=== PATIENT | female | born 2000 | race Caucasian/White ===

== ENCOUNTER 2020-04-25 14:32 | Outpatient (CLI) | payer OTHER, SELFPAY ==
--- NOTE | ~2020-04-25 | XR_ITS ---
XR foot LT min 3V DATE: 04/25/2020 14:59 INDICATION: Left foot pain, base of fifth metatarsal TECHNIQUE: 4 views COMPARISON: None FINDINGS: No fracture, dislocation, periosteal reaction or bone destruction. IMPRESSION: Negative Reviewed, dictated and finalized at location A. IMPRESSION: Negative
[2020-04-25 15:46] LABS: Cholesterol 136 mg/dL (0-200); HDL Direct 45 mg/dL (40-60); LDL Cholesterol Calculated 84 mg/dL (<130); Thyroid Stimulating Hormone 1.08 uIU/mL (0.52-4.13); Triglycerides 35 mg/dL (0-150)
[2020-04-28 06:44] LABS: Prolactin 11.2 ng/mL (***)
[2020-04-29 09:24] LABS: DHEA-Sulfate 379 mcg/dL (51-321)
[2020-04-29 14:33] LABS: Testosterone Free 5.1 pg/mL (0.1-6.4); Testosterone Total 33 ng/dL (2-45)
== END 2020-04-25 14:33 | disposition home or self-care (01) ==
DX: M79.672 Pain in left foot (principal); N94.6 Dysmenorrhea, unspecified
CPT/HCPCS: 36415; 73630; 80061; 82627; 83001; 83498; 84146; 84402; 84403; 84443

== ENCOUNTER 2020-05-06 10:19 | Outpatient (CLI) | payer OTHER, SELFPAY ==
--- NOTE | ~2020-05-06 | US_ITS ---
EXAMINATION: US pelvic complete w TV DATE: 05/06/2020 11:57 INDICATION: Dysmenorrhea. TECHNIQUE: Multiple transabdominal and transvaginal sonographic images of the pelvis were obtained. COMPARISON: None. FINDINGS: TRANSABDOMINAL ULTRASOUND: The uterus measures 5.8 x 2.9 x 4.3 cm. There is no free fluid in the pelvis. TRANSVAGINAL ULTRASOUND: The endometrial complex measures 5 mm in thickness. The right ovary measures 2.7 x 3.4 x 2.3 cm. The left ovary measures 4.0 x 1.8 x 3.1 cm. There is normal vascular flow in the ovaries. IMPRESSION: 1. Normal pelvis. Reviewed, dictated and finalized at location A. IMPRESSION: 1. Normal pelvis.
== END 2020-05-06 10:20 | disposition home or self-care (01) ==
PROVIDERS: PCP Family Medicine
DX: N94.6 Dysmenorrhea, unspecified (principal)
CPT/HCPCS: 76830; 76856

== ENCOUNTER 2020-08-03 16:55 | Emergency (ER) | payer OTHER, SELFPAY ==
[2020-08-03 17:15] VITALS: BP 126/75; PULSE 80; RESP 18; TEMP 37.2; O2SAT 98
--- NOTE | 2020-08-03 17:15 | ECG_ITS ---
Measurements Intervals [place] Rate: 78 P: 46 AL: 136 QRS: 60 QRSD: 91 T: 10 QT: 375 QTc: 427 Interpretive Statements SINUS RHYTHM MINIMAL Q WAVES- INFERIOR LEADS BASELINE ARTIFACT- II, III, AVF BORDERLINE ECG Electronically Signed On 08-04-2020 7:08:45 CDT by Pawan Simpson D.O.
[2020-08-03 17:27] LABS: Basophils Absolute Auto 0.03 K/mm3 (0.00-0.10); Basophils Percent Auto 0.4 % (0.0-1.0); Eosinophils Absolute Auto 0.08 K/mm3 (0.02-0.50); Eosinophils Percent Auto 1.2 % (1.0-6.0); Hematocrit 40.6 % (35.0-49.0); Immature Granulocyte Absolute 0.01 K/mm3 (0.00-0.00); Immature Granulocyte Percent A 0.1 % (0.0-0.0); Lymphocytes Absolute Auto 2.21 K/mm3 (1.10-4.50); Mean Corpuscular Hemoglobin 26.5 pg (27.0-31.0); Mean Corpuscular Volume 82.9 fL (78.0-102.0); Mean Platelet Volume 10.2 fl (9.2-11.8); Monocytes Absolute Auto 0.46 K/mm3 (0.10-0.90); Monocytes Percent Auto 6.7 % (2.0-11.0); Neutrophils Absolute Auto 4.1 K/mm3 (1.7-7.2); Neutrophils Percent Auto 59.6 % (50.0-70.0); Platelet Count Result 329 K/mm3 (150-420); Red Cell Distribution Width 14.6 % (11.6-14.4); White Blood Count 6.9 K/mm3 (4.8-10.8)
[2020-08-03 17:31] LABS: Add Urine Microscopic? YES; Appearance Urine Cloudy (Clear); Bilirubin Urine Negative (Negative); Blood Urine Negative (Negative); Color Urine Yellow (Yellow); Glucose Urine UA Negative (Negative); Ketones Urine Negative (Negative); Leukocyte Esterase Ur 3+ LEU/UL (Negative); Nitrate Urine Negative (Negative); Protein Urine Negative (Negative); Urobilinogen Urine 0.2 mg/dL (0.2-1.0)
[2020-08-03 17:36] LABS: Amphetamine Screen Urine Negative (Negative); Barbiturate Screen Urine Negative (Negative); Benzodiazepines Screen Urine Negative (Negative); Cannabinoid Screen Urine Negative (Negative); Cocaine Screen Urine Negative (Negative); Methadone Screen Urine Negative (Negative); Opiate Screen Urine Negative (Negative); Phencyclidine Screen Urine Negative (Negative)
[2020-08-03 17:38] LABS: RBC Urine 0-2 /hpf (0-2); Squamous Epithelial Cell Urine Moderate /hpf (Few)
[2020-08-03 17:39] LABS: Amorphous Sediment Urine Moderate; Bacteria Urine 1+ /hpf
[2020-08-03 17:47] LABS: Alanine Aminotransferase 25 U/L (14-59); Albumin Level 3.9 g/dL (3.4-5.0); Alkaline Phosphatase 61 U/L (46-116); Anion Gap 7 mmol/L (8-16); Aspartate Amino Transferase 18 U/L (15-37); Bilirubin,Total 0.3 mg/dL (0.00-1.00); Blood Urea Nitrogen 11 mg/dL (7-18); Carbon Dioxide 27 mmol/L (21-32); Chloride 105 mmol/L (98-108); Estimated CRCL calculation 113 ml/min; Estimated Glomerular Filt Rate > 60; Glucose 100 mg/dL (70-99); Osmolality Calculated 287 mOsm/kg (285-295); Potassium 3.7 mmol/L (3.5-5.1); Salicylate 0.5 mg/dL (2.8-20.0); Sodium 139 mmol/L (136-145); Total Protein 7.4 g/dL (6.4-8.2)
[2020-08-03 17:49] LABS: Acetaminophen 0 ug/mL (10-30); Ethanol < 3 mg/dL (0-6)
[2020-08-03 17:52] LABS: Pregnancy On Board Control Positive; Urine Pregnancy Test Negative
--- NOTE | 2020-08-03 18:15 | ED.PSYCH ---
HPI - Psych General Chief Complaint: Psychiatric Symptoms Stated Complaint: psych eval Source: patient Mode of arrival: ambulatory Limitations: no limitations History of Present Illness HPI Narrative: Pt presents to ED with hc of suicide attempt 3 days ago. SHe took 4 of her hydroxizine , then the next day she took 3 of the same tablets. She states it was to kill herself. She says she isnt suicidal at this moment. She called mental health and they told her to come in, and so she came in after she went to work today. pt states there is nothing really bothering her at this time MD complaint: feels depressed Duration: intermittent History of same: Yes Relieving factors: none Exacerbating factors: none Context: other (she and her friend want to live independantly but they cant afford it right now, that is her only stressor at this time) Associated psychiatric symptoms: depression Treatments prior to arrival: none If self harm: intentional overdose (but not suicidal now per patient) Related Data Home Medications Medication Instructions Recorded Confirmed ferrous gluconate 240 mg (27 mg 240 mg PO DAILY 10/08/19 iron) tablet mecobalamin (vitamin B12) 5,000 mcg PO 10/08/19 mcg disintegrating tablet Allergies Allergy/AdvReac Type Severity Reaction Status Date / Time No Known Allergies Allergy Unverified 10/08/19 08:59 Review of Systems Review of Systems: All systems reviewed & are unremarkable except as noted in HPI and below Psychiatric: Psychiatric: Reports as per HPI, Reports depression and Reports suicidal ideation PMFSH Past Medical History Medical History Infected pilonidal cyst Family History Family History Mother Hypertension Other Family history of arthritis Social History Social History Smoking status: Never smoker Alcohol intake: never Gender identity (if verbalized by the patient): Female Exam Const: General: no acute distress and alert Nutritional Appearance: well nourished Orientation/consciousness: patient oriented x3 HENMT: Head: normal to inspection Eyes: Conjunctivae: conjunctivae normal Pupils: Equal, round and reactive pupils present Neck: Neck: normal visual inspection Chest: Chest palpation & inspection: normal inspection of the chest Resp: Effort & Inspection: normal respiratory effort Auscultation: clear to auscultation bilaterally Cardio: Rate: regular rate Rhythm: regular rhythm GI: Inspection: non-distended GI Palp: Yes Soft to palpation and No Tenderness to palpation present (GI) Auscultation: normal bowel sounds : General: Yes no CVA tenderness Back/Spine/Pelvis: Back: no CVA tenderness Skin: General skin exam: normal color Neuro: General: patient oriented x3 Speech: normal speech Extrem: General: normal to inspection Psych: Appearance: grossly normal Mental Status: mental status grossly normal Affect: normal affect and No Sad affect present Attitude: cooperative Thought content: Yes Normal thought content present Course Course Emergency Course: [facility] here to evaluate, pt is not currently suicidal, and MH has arranged appt in am Vital Signs Vital signs: Vital Signs Temperature 37.2 C 08/03/20 17:15 Pulse Rate 80 08/03/20 17:15 Respiratory Rate 18 08/03/20 17:15 Blood Pressure 126/75 08/03/20 17:15 Pulse Oximetry 98 08/03/20 17:15 Temperature 36.6 C 08/03/20 23:56 Pulse Rate 78 08/03/20 23:56 Respiratory Rate 18 08/03/20 23:56 Blood Pressure 138/88 08/03/20 23:56 Pulse Oximetry 97 08/03/20 23:56 MDM - Psych Lab Data Result diagrams: 08/03/20 17:22 08/03/20 17:22 Labs: Lab Results 08/03/20 08/03/20 08/03/20 Range/Units 17:22 17:22 17:22 WBC 6.9 (4.8-10.8) K/mm3 RB
--- NOTE | 2020-08-03 18:29 | PC.NURSE ---
[facility] staff, Mehdi, notified of pt. he will arrive in approximately 1 hour for pt interview. no change in pt condition. friend at bedside. informed of counselor en route.
[2020-08-03 18:30] VITALS: BP 129/63; PULSE 71; RESP 16; TEMP 36.9; O2SAT 99
--- NOTE | 2020-08-03 19:17 | PC.NURSE ---
no change in pt condition. awaiting [facility] staff arrival. friend at bedside.
[2020-08-03 20:00] VITALS: BP 130/74; PULSE 60; RESP 18; O2SAT 100
--- NOTE | 2020-08-03 21:21 | PC.NURSE ---
no change in pt condition. continue to await [facility] staff. friend at bedside.
[2020-08-03 21:35] VITALS: BP 130/62; PULSE 67; RESP 16; O2SAT 97
--- NOTE | 2020-08-03 22:11 | PC.NURSE ---
Cj, from [facility] at bedside speaking with pt.
[2020-08-03 23:18] VITALS: BP 130/60; PULSE 90; RESP 20; O2SAT 99
[2020-08-03 23:56] VITALS: BP 138/88; PULSE 78; RESP 18; TEMP 36.6; O2SAT 97
== END 2020-08-03 23:57 | disposition home or self-care (01) ==
PROVIDERS: Emergency Provider Emergency Medicine; PCP Nurse Practitioner
DX: F33.1 Major depressive disorder, recurrent, moderate (principal); R82.90 Unspecified abnormal findings in urine
CPT/HCPCS: 36415; 80053; 80307; 81001; 81025; 85025; 87086; 87088; 93005; 99283; 99284

== ENCOUNTER 2023-10-12 11:21 | Emergency (ER) | payer OTHER, SELFPAY ==
[2023-10-12 11:29] VITALS: BP 131/80; PULSE 73; RESP 18; TEMP 36.4; O2SAT 99
--- NOTE | 2023-10-12 11:59 | ED.DENTAL ---
HPI - Dental/Oral General Chief complaint: Dental/Oral Stated complaint: tooth pain Time Seen by Provider: 10/12/23 11:36 History of Present Illness HPI Narrative: Patient is a 20-year-old female who presents here with left mandibular dental pain. Also has discomfort under her jaw where there is swollen lymph node. Has been on some amoxicillin for the last 2 weeks. She is scheduled to see a Medicaid dentist [place] [address] [facility] No difficulty breathing or swelling. Related Data Home Medications Medication Instructions Recorded Confirmed ferrous gluconate 240 mg (27 mg 240 mg PO DAILY 10/08/19 iron) tablet (Ferate) mecobalamin (vitamin B12) 5,000 mcg PO 10/08/19 mcg disintegrating tablet Allergies Allergy/AdvReac Type Severity Reaction Status Date / Time No Known Allergies Allergy Verified 10/12/23 11:31 Review of Systems Constitutional: Constitutional: Denies chills and Denies fever(s) ENT: Denies nasal congestion and Denies sore throat Comments: Dental pain PMFSH Past Medical History Medical History (Updated 10/12/23 @ 12:02 by Darryn White MD) Infected pilonidal cyst Family History Family History Mother Hypertension Other Family history of arthritis Social History Social History Smoking status: Never smoker Alcohol intake: never Gender identity (if verbalized by the patient): Female Exam Narrative: GENERAL: Well-appearing, well-nourished, and in no acute distress. HEAD: Normocephalic, atraumatic. ENT: Mucous membranes moist. Tender left submandibular lymphadenopathy. No dental abscess identified that is drainable. NECK: Supple. NEURO: Alert and oriented x3. PSYCH: Normal mood and affect. Course Course Emergency Course: Patient resting comfortably. Discussed treatment pain with anti-inflammatories for will also prescribe small amount narcotic medication. Will also continue antibiotics. Discharge home. Vital Signs Vital signs: Vital Signs Temperature 97.6 F 10/12/23 11:29 Pulse Rate 73 10/12/23 11:29 Respiratory Rate 18 10/12/23 11:29 Blood Pressure 131/80 10/12/23 11:29 Pulse Oximetry 99 10/12/23 11:29 Temperature 97.6 F 10/12/23 11:29 Pulse Rate 73 10/12/23 11:29 Respiratory Rate 18 10/12/23 11:29 Blood Pressure 131/80 10/12/23 11:29 Pulse Oximetry 99 10/12/23 11:29 Discharge Plan Discharge Clinical Impression: Toothache Patient Disposition: Home, Self-Care Condition: Stable Instructions: Toothache (ED) Additional Instructions: Return ER if you have difficulty breathing or swallowing, have facial swelling, have additional concerns. Prescriptions: New hydrocodone-acetaminophen 5-325 mg tablet 1 tablet PO Q6H PRN (Reason: pain) Qty: 8 0RF amoxicillin-pot clavulanate 875-125 mg tablet 1 tablet PO Q12H Qty: 14 0RF No Action ferrous gluconate [Ferate] 240 mg (27 mg iron) tablet 240 mg PO DAILY mecobalamin (vitamin B12) 5,000 mcg tablet,disintegrating PO Follow-up/Referrals: Michelet,Ly Haney [employer] [employer] [facility] [Primary Care Provider] - Stand Alone Forms: Work/School Release IP
== END 2023-10-12 12:41 | disposition home or self-care (01) ==
PROVIDERS: Emergency Provider Emergency Medicine; PCP Nurse Practitioner
DX: K08.89 Other specified disorders of teeth and supporting structures (principal)
CPT/HCPCS: 99283